=== PATIENT | male | born 1960 | race Caucasian/White ===

== ENCOUNTER → 2019-10-15 09:18 | Outpatient (BNVA) | payer MEDICARE, MEDICAID, SELFPAY | PROVIDERS: Family Provider Family Medicine; Visit Provider Anesthesiology | DX: G89.29 Other chronic pain (principal); M54.16 Radiculopathy, lumbar region; M51.36 Other intervertebral disc degeneration, lumbar region; M79.651 Pain in right thigh; M79.652 Pain in left thigh; M25.512 Pain in left shoulder; F17.220 Nicotine dependence, chewing tobacco, uncomplicated; Z79.891 Long term (current) use of opiate analgesic | CPT/HCPCS: 99214 ==

== ENCOUNTER → 2019-12-11 08:44 | Outpatient (BNVA) | payer MEDICARE, MEDICAID, SELFPAY | PROVIDERS: Family Provider Family Medicine; PCP Family Medicine; Visit Provider Nurse Practitioner | DX: M54.16 Radiculopathy, lumbar region (principal); M79.651 Pain in right thigh; M79.652 Pain in left thigh; G25.81 Restless legs syndrome; F17.220 Nicotine dependence, chewing tobacco, uncomplicated; Z71.6 Tobacco abuse counseling; Z79.891 Long term (current) use of opiate analgesic | CPT/HCPCS: 99214 ==

== ENCOUNTER → 2020-04-06 08:08 | Outpatient (BNVA) | payer MEDICARE, MEDICAID, SELFPAY | PROVIDERS: Family Provider Family Medicine; PCP Family Medicine; Visit Provider Anesthesiology | DX: G89.29 Other chronic pain (principal); M51.36 Other intervertebral disc degeneration, lumbar region; M54.16 Radiculopathy, lumbar region; M54.9 Dorsalgia, unspecified; G25.81 Restless legs syndrome; M25.511 Pain in right shoulder; M25.512 Pain in left shoulder; F17.220 Nicotine dependence, chewing tobacco, uncomplicated; Z79.891 Long term (current) use of opiate analgesic | CPT/HCPCS: 99214 ==

== ENCOUNTER → 2020-06-15 07:55 | Outpatient (BNVA) | payer MEDICARE, MEDICAID, SELFPAY | PROVIDERS: Family Provider Family Medicine; PCP Family Medicine; Visit Provider Anesthesiology | DX: G89.29 Other chronic pain (principal); M54.16 Radiculopathy, lumbar region; M51.36 Other intervertebral disc degeneration, lumbar region; M54.9 Dorsalgia, unspecified; M25.512 Pain in left shoulder; G25.81 Restless legs syndrome; F17.220 Nicotine dependence, chewing tobacco, uncomplicated; Z79.891 Long term (current) use of opiate analgesic | CPT/HCPCS: 99214 ==

== ENCOUNTER → 2020-08-06 09:32 | Outpatient (BNVA) | payer MEDICARE, MEDICAID, SELFPAY | PROVIDERS: Family Provider Family Medicine; PCP Family Medicine; Visit Provider Anesthesiology | DX: G89.29 Other chronic pain (principal); M51.36 Other intervertebral disc degeneration, lumbar region; M54.16 Radiculopathy, lumbar region; M25.512 Pain in left shoulder; G25.81 Restless legs syndrome; M54.9 Dorsalgia, unspecified; F17.220 Nicotine dependence, chewing tobacco, uncomplicated; Z79.891 Long term (current) use of opiate analgesic | CPT/HCPCS: 99214 ==

== ENCOUNTER → 2020-10-12 07:52 | Outpatient (BNVA) | payer MEDICARE, MEDICAID, SELFPAY | PROVIDERS: Family Provider Family Medicine; PCP Family Medicine; Visit Provider Anesthesiology | DX: G89.29 Other chronic pain (principal); M54.16 Radiculopathy, lumbar region; M51.36 Other intervertebral disc degeneration, lumbar region; M54.9 Dorsalgia, unspecified; G25.81 Restless legs syndrome; M25.512 Pain in left shoulder; F17.220 Nicotine dependence, chewing tobacco, uncomplicated; Z79.891 Long term (current) use of opiate analgesic | CPT/HCPCS: 99214 ==

== ENCOUNTER → 2020-12-08 08:12 | Outpatient (BNVA) | payer MEDICARE, MEDICAID, SELFPAY | PROVIDERS: Family Provider Family Medicine; PCP Family Medicine; Visit Provider Anesthesiology | DX: G89.29 Other chronic pain (principal); M54.16 Radiculopathy, lumbar region; M51.36 Other intervertebral disc degeneration, lumbar region; M54.9 Dorsalgia, unspecified; M25.512 Pain in left shoulder; G25.81 Restless legs syndrome; F17.220 Nicotine dependence, chewing tobacco, uncomplicated; Z79.891 Long term (current) use of opiate analgesic | CPT/HCPCS: 99214 ==

== ENCOUNTER → 2021-02-04 09:18 | Outpatient (BNVA) | payer MEDICARE, MEDICAID, SELFPAY | PROVIDERS: Family Provider Family Medicine; PCP Family Medicine; Visit Provider Nurse Practitioner | DX: G89.29 Other chronic pain (principal); M51.36 Other intervertebral disc degeneration, lumbar region; M54.16 Radiculopathy, lumbar region; M54.9 Dorsalgia, unspecified; M25.512 Pain in left shoulder; G25.81 Restless legs syndrome; F17.220 Nicotine dependence, chewing tobacco, uncomplicated; Z79.891 Long term (current) use of opiate analgesic; Z71.6 Tobacco abuse counseling | CPT/HCPCS: 99214 ==

== ENCOUNTER → 2021-03-03 10:29 | Outpatient (BNVA) | payer MEDICARE, MEDICAID, SELFPAY | PROVIDERS: Family Provider Family Medicine; PCP Family Medicine; Visit Provider Nurse Practitioner | DX: G89.29 Other chronic pain (principal); M51.36 Other intervertebral disc degeneration, lumbar region; M54.16 Radiculopathy, lumbar region; M25.512 Pain in left shoulder; G25.81 Restless legs syndrome; F17.220 Nicotine dependence, chewing tobacco, uncomplicated; Z79.891 Long term (current) use of opiate analgesic; Z71.6 Tobacco abuse counseling | CPT/HCPCS: 99214 ==

== ENCOUNTER → 2021-05-04 07:57 | Outpatient (BNVA) | payer MEDICARE, MEDICAID, SELFPAY | PROVIDERS: Family Provider Family Medicine; PCP Family Medicine; Visit Provider Anesthesiology | DX: G89.29 Other chronic pain (principal); M54.16 Radiculopathy, lumbar region; M51.36 Other intervertebral disc degeneration, lumbar region; M25.512 Pain in left shoulder; G25.81 Restless legs syndrome; F17.210 Nicotine dependence, cigarettes, uncomplicated; Z79.891 Long term (current) use of opiate analgesic | CPT/HCPCS: 99214 ==

== ENCOUNTER → 2021-06-29 07:57 | Outpatient (BNVA) | payer MEDICARE, MEDICAID, SELFPAY | PROVIDERS: Family Provider Family Medicine; PCP Family Medicine; Visit Provider Anesthesiology | DX: G89.29 Other chronic pain (principal); M54.16 Radiculopathy, lumbar region; M51.36 Other intervertebral disc degeneration, lumbar region; M25.512 Pain in left shoulder; G25.81 Restless legs syndrome; Z79.891 Long term (current) use of opiate analgesic; Z87.891 Personal history of nicotine dependence | CPT/HCPCS: 99214 ==

== ENCOUNTER 2021-09-21 18:27 | Outpatient (CLI) | payer MEDICARE, MEDICAID, SELFPAY ==
[2021-09-21 19:08] LABS: Basophils # 0.1 10^3/uL (0.0-0.1); Basophils % 0.6 %; Eosinophils # 0.2 10^3/uL (0.0-0.8); Eosinophils % 2.7 %; Hematocrit 41.7 % (42.0-52.0); Hemoglobin 14.1 g/dL (11.7-16.6); Lymphocytes # 3.1 10^3/uL (0.8-4.8); Mean Corpuscular HGB Conc 33.8 g/dL (30.0-36.0); Mean Corpuscular Volume 85.6 fl (80-94); Mean Platelet Volume 9.8 fL (7.4-10.4); Monocytes # 0.5 10^3/uL (0.2-0.9); Monocytes % 6.6 %; Neutrophils # 4.25 10^3/uL (1.8-7.7); Neutrophils % 51.7 %; Nucleated Red Blood Cells % 0 %; Platelet Count 210 10^3/cmm (130-400); Red Blood Count 4.87 10^6/uL (4.1-5.3); Red Cell Distribution Width 12.1 % (12.1-15.1); White Blood Count 8.2 10^3/uL (4.0-10.0)
[2021-09-21 19:17] LABS: Anion Gap 17.9 (5-19); Blood Urea Nitrogen 12 mg/dL (8-23); Carbon Dioxide 23 mmol/L (22-29); Chloride 99 mmol/L (98-107); Glomerular Filtration Rate 137.4 mL/min (90-130); Glucose 114 mg/dL (65-115); Osmolality Calculated 283 mOsm/kg (285-295); Potassium 3.9 mmol/L (3.5-5.1); Sodium 136 mmol/L (136-145)
== END 2021-09-21 18:28 | disposition home or self-care (01) ==
PROVIDERS: Visit Provider Nurse Practitioner Acute Care
DX: I25.10 Atherosclerotic heart disease of native coronary artery without angina pectoris (principal)
CPT/HCPCS: 80048; 85025

== ENCOUNTER → 2021-09-28 14:22 | Outpatient (BNVA) | payer MEDICARE, MEDICAID, SELFPAY | PROVIDERS: Family Provider Family Medicine; Visit Provider Anesthesiology | DX: G89.29 Other chronic pain (principal); M54.16 Radiculopathy, lumbar region; M51.36 Other intervertebral disc degeneration, lumbar region; M25.512 Pain in left shoulder; G25.81 Restless legs syndrome; Z87.891 Personal history of nicotine dependence; Z79.891 Long term (current) use of opiate analgesic | CPT/HCPCS: 99214 ==

== ENCOUNTER 2021-11-28 09:51 | Outpatient (CLI) | payer MEDICARE, MEDICAID, SELFPAY ==
--- NOTE | 2021-11-28 10:01 | XR_ITS ---
WS: [id number] Lumbar spine with flexion, extension, and neutral lateral, 11/28/2021 Clinical Data: VERTEBROGENIC LOW BACK PAIN Comparison: Lumbar spine, 01/06/2016. Findings: No compression fractures or subluxation is seen. No disc space narrowing is seen. No limitation of motion or subluxation is seen in flexion or extension.. There is calcification of the abdominal aorta but no aneurysm. XR/XR lumbar spine f/e only [id number] Impression: 1. Negative lateral lumbar spine. 2. Negative for limitation of motion or subluxation on flexion or extension.
== END 2021-11-28 09:52 | disposition home or self-care (01) ==
PROVIDERS: PCP Family Medicine Adult Medicine; Visit Provider Nurse Practitioner
DX: M54.51 Vertebrogenic low back pain (principal)
CPT/HCPCS: 72120

== ENCOUNTER 2022-08-29 20:00 | Outpatient (CLI) | payer MEDICARE, MEDICAID, SELFPAY | END 2022-08-29 20:01 | disposition home or self-care (01) | LOC: SLEEP 08-30 06:56 | PROVIDERS: PCP Family Medicine Adult Medicine; Visit Provider Family Medicine Adult Medicine | DX: G47.33 Obstructive sleep apnea (adult) (pediatric) (principal) | CPT/HCPCS: 95811 ==

== ENCOUNTER 2023-03-27 12:46 | Outpatient (CLI) | payer MEDICARE, MEDICAID, SELFPAY ==
--- NOTE | 2023-03-27 13:00 | CT_ITS ---
WS: [id number] LDCT LUNG CANCER SCREENING TECHNIQUE: Noncontrast CT of the chest with coronal and sagittal reformatted images. CLINICAL INFORMATION: lung cancer sc COMPARISON: CT chest 2013 DLP: 111.90 mGy.cm DIvol: Mean CTDIvol: 2.60 (mGy) All CT scans at [facility] use at least one of these dose optimization techniques: automat ed exposure control; mA and/or kV adjustment per patient size (includes targeted exams where dose is matched to clinical indication); or iterative reconstruction. FINDINGS: Small pleural nodules along the RIGHT minor fissure. A few tiny noncalcified nodules in RIGHT lower lobe. Subpleural nodularity RIGHT lower lobe. A few tiny nodules LEFT lower lobe posteriorly. Subsegmental atelectasis and pleural fibrosis LEFT lo wer lobe. Subpleural nodule measuring 5 mm LEFT lower lobe. Normal caliber thoracic aorta. Aortic calcification. Prior sternotomy. Prior CABG. Adrenal glands are normal. Normal GE junction. Cardiac pacer. No mediastinal or hilar lymphadenopathy . No axillary lymphadenopathy. Moderate thoracic kyphosis. Chronic anterior wedging in the mid thorac ic spine. Chronic compression with vertebroplasty changes at T9. CT/CT lung screening [id number] IMPRESSION: LUNG-RADS: 2-Benign Appearance or Behavior FOLLOW UP: 12 Month: Continue annual screening with LDCT
== END 2023-03-27 12:47 | disposition home or self-care (01) ==
PROVIDERS: PCP Family Medicine Adult Medicine; Visit Provider Family Medicine Adult Medicine
DX: Z12.2 Encounter for screening for malignant neoplasm of respiratory organs (principal); Z87.891 Personal history of nicotine dependence
CPT/HCPCS: 71271

== ENCOUNTER → 2023-04-23 09:57 | Outpatient (BNVA) | payer MEDICARE, MEDICAID, SELFPAY | PROVIDERS: PCP Family Medicine Adult Medicine; Referring Provider Family Medicine Adult Medicine; Visit Provider Specialist | DX: M25.512 Pain in left shoulder (principal); G89.29 Other chronic pain; M25.812 Other specified joint disorders, left shoulder | CPT/HCPCS: 20610; 73030; 99204; J1100; J2795; J3301 ==

== ENCOUNTER → 2024-10-02 15:41 | Outpatient (BNVA) | payer MEDICARE, MEDICAID, SELFPAY | PROVIDERS: PCP Family Medicine; Visit Provider Family Medicine | DX: I10 Essential (primary) hypertension; I25.810 Atherosclerosis of coronary artery bypass graft(s) without angina pectoris; E11.69 Type 2 diabetes mellitus with other specified complication; E78.2 Mixed hyperlipidemia; G25.81 Restless legs syndrome | CPT/HCPCS: 80053; 80061; 84439; 84443; 85025 ==

== ENCOUNTER 2024-10-15 09:02 | Outpatient (CLI) | payer MEDICAID, MEDICARE, SELFPAY ==
--- NOTE | 2024-10-15 09:00 | CT_ITS ---
WS: [id number] LDCT LUNG CANCER SCREENING TECHNIQUE: Noncontrast CT of the chest with coronal and sagittal reformatted images. CLINICAL INFORMATION: mya dep remission; quit 2013; screening COMPARISON: CT 03/27/2023 DLP: 126.89 mGy.cm DIvol: Mean CTDIvol: 2.80 (mGy) All CT scans at [facility] use at least one of these dose optimization techniques: automat ed exposure control; mA and/or kV adjustment per patient size (includes targeted exams where dose is matched to clinical indication); or iterative reconstruction. FINDINGS: Stable appearance of previously described small pleural nodules along the RIGHT minor fissure. A few tiny noncalcified nodules in RIGHT lower lobe appears stable. Subpleural nodularity RIGHT lower lobe. Stable subpleural nodule 5 mm LEFT lower lobe. Stable tiny nodules LEFT lower lobe posteriorly. Subse gmental atelectasis and pleural fibrosis LEFT lower lobe. No mediastinal or hilar lymphadenopathy. No axillary lymphadenopathy. Normal caliber thoracic aorta. Aortic calcification. Prior sternotomy. Prior CABG. Adrenal glands are normal. Normal GE junction. Cardiac pacer. Moderate thoracic kyphosis. Chronic anterior wedging in t he mid thoracic spine. Chronic compression with vertebroplasty changes at T9. CT/CT lung screening [id number] IMPRESSION: LUNG-RADS: 2-Benign Appearance or Behavior FOLLOW UP: 12 Month: Continue annual screening with LDCT
== END 2024-10-15 09:03 | disposition home or self-care (01) ==
LOC: RAD 09:07
PROVIDERS: PCP Family Medicine; Visit Provider Family Medicine
DX: Z12.2 Encounter for screening for malignant neoplasm of respiratory organs (principal); F17.211 Nicotine dependence, cigarettes, in remission; R91.8 Other nonspecific abnormal finding of lung field; J98.11 Atelectasis; J84.10 Pulmonary fibrosis, unspecified; I70.0 Atherosclerosis of aorta; Z98.890 Other specified postprocedural states; Z95.818 Presence of other cardiac implants and grafts; M40.294 Other kyphosis, thoracic region; R93.7 Abnormal findings on diagnostic imaging of other parts of musculoskeletal system
CPT/HCPCS: 71271